=== PATIENT | female | born 1950 | race Caucasian/White ===

== ENCOUNTER → 2016-07-08 | Outpatient (CLI) | payer OTHER ==
[2016-07-08 16:24] LABS: ABSOLUTE EOSINOPHILS # (AUTO) 0.1 10^3/uL (0.0-0.6); ABSOLUTE LYMPHOCYTES (AUTO) 2.8 10^3/uL (0.5-4.7); ABSOLUTE MONOCYTES (AUTO) 0.5 10^3/uL (0.1-1.4); ABSOLUTE NEUT (AUTO) 3.7 10^3/uL (1.7-8.2); BASOPHILS % (AUTO) 0.4 % (0-2); HEMATOCRIT 37.5 % (36.0-47.0); HEMOGLOBIN 12.3 g/dL (12.0-15.5); HGB HCT DIFFERENCE -0.6; LYMPHOCYTES % (AUTO) 38.6 % (13-45); MEAN CORPUSCULAR HEMOGLOBIN 29.5 pg (27.0-33.4); MEAN CORPUSCULAR HGB CONC 32.9 g/dL (32.0-36.0); MEAN CORPUSCULAR VOLUME 90 fl (80-97); MONOCYTES % (AUTO) 7.5 % (3-13); RED BLOOD COUNT 4.17 10^6/uL (3.72-5.28); SEGMENTED NEUTROPHILS % (AUTO) 51.5 % (42-78); WHITE BLOOD COUNT 7.2 10^3/uL (4.0-10.5)
== END ==
LOC: LAB 15:44
PROVIDERS: ATTEND Specialist
DX: R19.7 Diarrhea, unspecified (principal); R10.9 Unspecified abdominal pain; K57.30 Diverticulosis of large intestine without perforation or abscess without bleeding
CPT/HCPCS: 36415; 82272; 83540; 85025

== ENCOUNTER 2018-03-01 15:31 | Emergency (ER) | payer OTHER, MEDICARE ==
[2018-03-01 15:56] VITALS: BP 140/81
[2018-03-01] MEDS ORDERED: ONDANSETRON HCL INJ/PF 4 MG/2 ML SDV IV ONE (16:13)
[2018-03-01] MEDS ORDERED: FENTANYL CITRATE INJ/PF 100 MCG/2 ML AMPUL IV ONE (16:13)
--- NOTE | 2018-03-01 16:16 | ER Document Report ---
ED Medical Screen (RME) - General Chief Complaint: Lower Abdominal Pain Stated Complaint: ABDOMINAL PAIN Time Seen by Provider: 03/01/18 16:12 Mode of Arrival: Ambulatory Information source: Patient, Relative TRAVEL OUTSIDE OF THE [place] IN LAST 30 DAYS: No - HPI Onset: Other - Abdominal pain which began 2 days prior while at home, she has had intense abdominal pain since that comes in waves, she has had chills at home as well. Has had decreased bowel movements but then took Dulcolax stool softener as well as MiraLAX which seemed to move her today she has had both hard and loose bowel movements since then. Has no history of abdominal problems in the past though she has had her gallbladder removed and a hysterectomy she is never had a bowel obstruction. Denies any emesis does endorse some nausea. - Related Data Allergies/Adverse Reactions: propoxyphene [From Darvon] Allergy (Verified 03/01/18 15:35) Past Medical History - Social History Chew tobacco use (# tins/day): No Drug Abuse: None - Past Medical History Cardiac Medical History: Reports: Hx Hypercholesterolemia, Hx Hypertension Renal/ Medical History: Denies: Hx Peritoneal Dialysis Past Surgical History: Reports: Hx Cholecystectomy, Hx Hysterectomy, Hx Orthopedic Surgery, Hx Tonsillectomy Physical Exam - Vital signs Vitals: Temp Pulse Resp BP Pulse Ox 99.7 F 105 H 16 140/81 H 96 03/01/18 15:56 03/01/18 15:56 03/01/18 15:56 03/01/18 15:56 03/01/18 15:56 Course - Re-evaluation Re-evalutation: 03/01/18 16:15 This is a 68-year-old female with abdominal pain as well as chills and decreased bowel movements. She does have a diffusely tender abdomen worse in the left lower quadrant concerning for diverticulitis has no history of diverticulitis in the past. We will obtain CT abdomen and pelvis as well as blood work. We will plan for this patient undergo further investigation through the main emergency department. I performed a rapid medical screening examination on this patient will defer further imaging, tests, disposition to next provider. - Vital Signs Vital signs: Temp Pulse Resp BP Pulse Ox 99.7 F 105 H 16 140/81 H 96 03/01/18 15:56 03/01/18 15:56 03/01/18 15:56 03/01/18 15:56 03/01/18 15:56 Doctor's Discharge - Discharge Referrals: AMBROSE DORANTES MD [Primary Care Provider] - Follow up as needed
[2018-03-01] MEDS ORDERED: NORMAL SALINE 1000 ML 1,000 ML IV ONE (17:41)
[2018-03-01 17:58] LABS: ABSOLUTE BASOPHILS # (AUTO) 0.1 10^3/uL (0.0-0.2); ABSOLUTE EOSINOPHILS # (AUTO) 0.1 10^3/uL (0.0-0.6); ABSOLUTE LYMPHOCYTES (AUTO) 2.8 10^3/uL (0.5-4.7); ABSOLUTE MONOCYTES (AUTO) 0.8 10^3/uL (0.1-1.4); ABSOLUTE NEUT (AUTO) 7.1 10^3/uL (1.7-8.2); BASOPHILS % (AUTO) 0.5 % (0-2); EOSINOPHILS % (AUTO) 1.1 % (0-6); HEMATOCRIT 37.7 % (36.0-47.0); LYMPHOCYTES % (AUTO) 25.9 % (13-45); MEAN CORPUSCULAR HEMOGLOBIN 29.5 pg (27.0-33.4); MEAN CORPUSCULAR HGB CONC 34.6 g/dL (32.0-36.0); MEAN CORPUSCULAR VOLUME 85 fl (80-97); MONOCYTES % (AUTO) 7.7 % (3-13); PLATELET COUNT 262 10^3/uL (150-450); RED BLOOD COUNT 4.42 10^6/uL (3.72-5.28); RED CELL DISTRIBUTION WIDTH 12.8 % (11.5-14.0); SEGMENTED NEUTROPHILS % (AUTO) 64.8 % (42-78); TOTAL CELLS COUNTED % (AUTO) 100 %; WHITE BLOOD COUNT 10.9 10^3/uL (4.0-10.5)
[2018-03-01 18:19] LABS: ALANINE AMINOTRANSFERASE 32 U/L (9-52); ALBUMIN 4.4 g/dL (3.5-5.0); ALKALINE PHOSPHATASE 102 U/L (38-126); ANION GAP 7 (5-19); ASPARTATE AMINO TRANSFERASE 32 U/L (14-36); BILIRUBIN,DIRECT 0.2 mg/dL (0.0-0.4); BILIRUBIN,TOTAL 0.6 mg/dL (0.2-1.3); BLOOD UREA NITROGEN 14 mg/dL (7-20); CALCIUM 9.7 mg/dL (8.4-10.2); CARBON DIOXIDE 32 mmol/L (22-30); CHLORIDE 101 mmol/L (98-107); GLUCOSE 139 mg/dL (75-110); LIPASE 56.4 U/L (23-300); SODIUM 140.3 mmol/L (137-145); TOTAL PROTEIN 7.8 g/dL (6.3-8.2)
[2018-03-01 18:27] LABS: APPEARANCE,URINE CLEAR; BILIRUBIN,URINE NEGATIVE (NEGATIVE); COLOR,URINE YELLOW; GLUCOSE, URINE 50 mg/dL (NEGATIVE); KETONES,URINE NEGATIVE (NEGATIVE); LEUKOCYTE ESTERASE,URINE NEGATIVE (NEGATIVE); NITRITE,URINE NEGATIVE (NEGATIVE); PROTEIN,URINE NEGATIVE (NEGATIVE); UROBILINOGEN,URINE NEGATIVE mg/dL (<2.0)
[2018-03-01 18:28] LABS: URINE SPECIFIC GRAVITY 1.018
--- NOTE | 2018-03-01 18:45 | ER Document Report ---
ED GI/ - General Mode of Arrival: Ambulatory Information source: Patient TRAVEL OUTSIDE OF THE [place] IN LAST 30 DAYS: No - HPI Patient complains to provider of: Abdominal pain, Diarrhea Onset: Yesterday Timing/Duration: Sudden, Persistent, Worse Quality of pain: Achy, Burning, Cramping, Throbbing Severity at maximum: Severe Severity in ED: Severe Pain Level: 4 Location: LUQ, RUQ, Suprapubic Vaginal bleeding (Compared to normal period): None Sexual history: Inactive Associated symptoms: Chills, Diarrhea, Hematuria, Radiates to back Exacerbated by: Supine, Sitting, Standing, Movement, Walking, Coughing, Deep breathing Relieved by: Denies Similar symptoms previously: No Recently seen / treated by doctor: No <PURNIAM SNYDER - Last Filed: 03/01/18 18:40> <DIONY MEJIA - Last Filed: 03/02/18 05:05> - General Chief Complaint: Lower Abdominal Pain Stated Complaint: ABDOMINAL PAIN Time Seen by Provider: 03/01/18 16:12 Notes: Patient is a 68-year-old obese female comes emergency room complaint of pain all over her abdomen and belly. States it started Wednesday and has been kind of colicky coming and going but the last several hours been pretty constant. Patient has a history of cholecystectomy about a year ago she is also had a total hysterectomy and along with that they did an appendectomy. She states she has had diarrhea off and on. She has had nausea but has not vomited. She rates her pain at a 9 out of 10. (PURNIMA SNYDER) - Related Data Allergies/Adverse Reactions: propoxyphene [From Darvon] Allergy (Verified 03/01/18 15:35) Past Medical History - General Information source: Patient, Relative - Social History Smoking Status: Never Smoker Chew tobacco use (# tins/day): No Smoking Education Provided: No Frequency of alcohol use: None Drug Abuse: None Family History: Reviewed & Not Pertinent Patient has suicidal ideation: No Patient has homicidal ideation: No - Past Medical History Cardiac Medical History: Reports: Hx Hypercholesterolemia, Hx Hypertension Renal/ Medical History: Denies: Hx Peritoneal Dialysis Past Surgical History: Reports: Hx Cholecystectomy, Hx Hysterectomy, Hx Orthopedic Surgery, Hx Tonsillectomy <PURNIMA SNYDER - Last Filed: 03/01/18 18:40> Review of Systems - Review of Systems Constitutional: Fever EENT: No symptoms reported Cardiovascular: No symptoms reported Respiratory: No symptoms reported Gastrointestinal: Abdominal pain, Diarrhea, Nausea. denies: Vomiting, Constipation, Blood streaked bowels Genitourinary: No symptoms reported Female Genitourinary: No symptoms reported Musculoskeletal: Back pain Skin: No symptoms reported Hematologic/Lymphatic: No symptoms reported Neurological/Psychological: No symptoms reported -: Yes All other systems reviewed and negative <PURNIMA SNYDER - Last Filed: 03/01/18 18:40> Physical Exam - Vital signs Interpretation: Hypertensive, Tachycardic - Respiratory Respiratory status: No respiratory distress Chest status: Nontender Breath sounds: Normal. No: Rales, Rhonchi, Stridor, Wheezing - Cardiovascular Rhythm: Tachycardia Heart sounds: Normal auscultation Murmur: No - Abdominal Inspection: Striae, Obese Distension: Distended, Other Bowel sounds: Hyperactive Tenderness: Tender, Other - Examination of patient's abdomen shows her to be distended slightly. She is diffusely tender across the upper quads. Percussion causes her to cringe and crying. She also has some left lower quad tenderness to palpation may be indicative of diverticulitis.. No: McBurney's point, Tucker's sign, Guarding, Rebound Organomegaly: No organomegaly - Extremities General upper extremity: Normal inspection, Nontender, Normal ROM, Normal strength General lower extremity: Normal inspection, Nontender, Normal ROM, Normal strength, Normal weight bearing - Neurological Neuro grossly intact: Yes Cognition: Normal Orientation: AAOx4 Rossy Coma Scale Eye Opening: Spontaneous [place] Coma Scale Verbal: Oriented [place] Coma Scale Motor: Obeys Commands Rossy Coma Scale Total: 15 Speech: Normal - Skin Skin Temperature: Warm Skin Moisture: Dry Skin Color: Normal, Ashen <PURNIMA SNYDER - Last Filed: 03/01/18 18:40> <DIONY MEJIA - Last Filed: 03/02/18 05:05> - Vital signs Vitals: Temp Pulse Resp BP Pulse Ox 99.7 F 105 H 16 140/81 H 96 03/01/18 15:56 03/01/18 15:56 03/01/18 15:56 03/01/18 15:56 03/01/18 15:56 - Notes Notes: Patient is a well-nourished well-developed obese female she is in no apparent distress but she is in obvious pain and discomfort. (PURNIMA SNYDER) - General Notes: Patient is a well-nourished well-developed obese female who is in no apparent distress but she is in obvious pain and discomfort. (PURNIMA SNYDER) Course - Laboratory Result Diagrams: 03/01/18 17:40 03/01/18 17:40 <PURNIMA SNYDER - Last Filed: 03/01/18 18:40> - Laboratory Result Diagrams: 03/01/18 17:40 03/01/18 17:40 <DIONY MEJIA - Last Filed: 03/02/18 05:05> - Re-evaluation Re-evalutation: 03/01/18 20:03 Patient is currently pain-free after CT. CT shows signs of diverticulitis, will treat for same. Patient states she already has a steel cutter in [place] but is unsure of the name. States she thinks the steel cutter may have retired. Contact information for Dr. Rose will be given. Close return precautions reviewed with patient and . (DIONY MEJIA) - Vital Signs Vital signs: Temp Pulse Resp BP Pulse Ox 98.2 F 105 H 16 140/81 H 96 03/01/18 18:12 03/01/18 15:56 03/01/18 15:56 03/01/18 15:56 03/01/18 15:56 - Laboratory Laboratory results interpreted by me: 03/01/18 03/01/18 03/01/18 17:40 17:40 17:40 WBC 10.9 H Carbon Dioxide 32 H Glucose 139 H Urine Glucose (UA) 50 H Urine Ascorbic Acid 20 H Discharge <PURNIMA SNYDER - Last Filed: 03/01/18 18:40> <DIONY MEJIA - Last Filed: 03/02/18 05:05> - Discharge Clinical Impression: Diverticulitis Condition: Stable Disposition: HOME, SELF-CARE Additional Instructions: Diverticulitis You have been diagnosed as having diverticulitis. This is an inflammation of a small pouch attached to the colon, called a diverticulum. Many of these small pouches can form on the colon as you get older. They are often caused by constipation. When inflamed or infected, symptoms arise -- usually abdominal pain, constipation or diarrhea, fever, and blood in the stool. Severe diverticulitis may require hospitalization. More mild cases are usually treated with antibiotics and clear liquid diet. As you improve, a diet low in residue (one which forms little stool) is prescribed. When you are better, you should eat a high-fiber diet. Stool softeners ( like Metamucil) are usually recommended. Call the doctor or go to the hospital if there is increasing pain, vomiting , high fever, large amounts of blood passed, or if bowel movements cease. Prescriptions: Ciprofloxacin HCl [Cipro 500 mg Tablet] 500 mg PO BID #20 tablet Docusate Sodium [Colace 100 mg Capsule] 100 mg PO DAILY #30 capsule Metronidazole [Flagyl 500 mg Tablet] 500 mg PO BID #14 tablet Morphine Sulfate [Morphine Ir 15 Mg Tablet] 15 mg PO Q4H PRN #12 tablet PRN Reason: Referrals: MAREN ROSE MD [ACTIVE STAFF] - Follow up as needed
[2018-03-01] MEDS ORDERED: HYDROMORPHONE HCL INJ/PF 2 MG/ML AMPULE IV ONE (18:53)
--- NOTE | 2018-03-01 19:34 | RADIOLOGY REPORT (SQ) ---
EXAM DESCRIPTION: CT ABD/PELVIS WITH IV ONLY COMPLETED DATE/TIME: 03/01/2018 7:15 pm REASON FOR STUDY: concern for diverticular abscess COMPARISON: None. TECHNIQUE: CT scan of the abdomen and pelvis performed using helical scanning technique with dynamic intravenous contrast injection. No oral contrast. Images reviewed with lung, soft tissue, and bone windows. Reconstructed coronal and sagittal MPR images reviewed. Delayed images for evaluation of the urinary system also acquired. All images stored on PACS. All CT scanners at this facility use dose modulation, iterative reconstruction, and/or weight based d osing when appropriate to reduce radiation dose to as low as reasonably achievable (ALARA). [facility]: Dose Right [facility]: CareDose [facility]: Dose Right [facility]: Teradose 4D [facility]: Adpoints CONTRAST TYPE AND DOSE: contrast/concentration: Isovue 350.00 mg/ml; Total Contrast Delivered: 100.0 ml; Total Saline Delivered: 45.0 ml RENAL FUNCTION: BUN 14 creatinine 0.7 RADIATION DOSE: CT Rad equipment meets quality standard of care and radiation dose reduction techniq ues were employed. CTDIvol: 17.4 - 20.0 mGy. DLP: 2100 mGy-cm.. LIMITATIONS: None. FINDINGS: LOWER CHEST: No significant findings. No nodules or infiltrates. LIVER: The liver is diffusely hypoattenuating. SPLEEN: The spleen is prominent but not grossly enlarged. PANCREAS: No masses. No significant calcifications. No adjacent inflammation or peripancreatic fluid collections. Pancreatic duct not dilated. GALLBLADDER: Surgically absent. ADRENAL GLANDS: No significant masses or asymmetry. RIGHT KIDNEY AND URETER: No solid masses. No significant calcifications. No hydronephrosis or hyd roureter. LEFT KIDNEY AND URETER: No solid masses. No significant calcifications. No hydronephrosis or hydr oureter. AORTA AND VESSELS: No aneurysm. No dissection. Renal arteries, SMA, celiac without stenosis. RETROPERITONEUM: No retroperitoneal adenopathy, hemorrhage or masses. BOWEL AND PERITONEAL CAVITY: Sigmoid diverticulosis with inflammatory changes and thickening of a seg ment of the sigmoid colon. No fluid collection is seen to suggest an abscess. There is no evidence of perforation. APPENDIX: Surgically absent. PELVIS: No mass. No free fluid. Normal bladder. ABDOMINAL WALL: No masses. No hernias. BONES: No significant or acute findings. OTHER: No other significant finding. IMPRESSION: 1. Fatty infiltration of the liver. 2. Sigmoid diverticulitis with no evidence of an abscess. No evidence of perforation. TECHNICAL DOCUMENTATION: JOB ID: [id number] Quality ID # [id number]: Final reports with documentation of one or more dose reduction techniques (e.g., Au tomated exposure control, adjustment of the mA and/or kV according to patient size, use of iterative reconstruction technique) 2010 [employer]- All Rights Reserved Reading location - IP/workstation name: [email or web address]
== END 2018-03-01 20:28 | disposition home or self-care (01) ==
LOC: ER 15:31
DX: K57.32 Diverticulitis of large intestine without perforation or abscess without bleeding (principal); R19.7 Diarrhea, unspecified; R31.9 Hematuria, unspecified; I10 Essential (primary) hypertension; R11.0 Nausea; R50.9 Fever, unspecified; R00.0 Tachycardia, unspecified; E66.9 Obesity, unspecified; Z68.37 Body mass index [BMI] 37.0-37.9, adult; M54.9 Dorsalgia, unspecified; Z90.49 Acquired absence of other specified parts of digestive tract; Z90.710 Acquired absence of both cervix and uterus; Z88.5 Allergy status to narcotic agent
CPT/HCPCS: 99284; 96361; 96374; 96375; 36415; 87086; 83690; 85025; 80053; 81001; 74177; J3010; J1170; J2405; J7030